=== PATIENT | female | born 1995 | race Caucasian/White ===

== ENCOUNTER 2021-06-01 10:36 | Emergency (ER) | payer OTHER ==
[2021-06-01 11:27] LABS: #Basophils 0.1 10x3/uL (0.0-0.2); #Eosinphils 0.2 10x3/uL (0.0-0.5); #Monocytes 0.8 10x3/uL (0.0-1.1); #Neutrophils 7.8 10x3/uL (1.5-8.4); %Basophils 0.5 % (0.0-2.0); %Eosinophils 1.7 % (0.0-6.0); %Lymphocytes 24.4 % (18.0-47.0); %Monocytes 6.5 % (0.0-10.0); %Neutrophils 66.6 % (40.0-75.0); Hemoglobin 13.9 g/dL (12.0-15.5); Mean Corpuscular HGB CONC 33.6 g/dL (32.0-36.0); Mean Corpuscular Hemoglobin 29.3 pg (27.0-33.0); Mean Corpuscular Volume 87.2 fl (81.6-98.3); Mean Platelet Volume 8.8 fl (7.4-10.4); Platelet Count 336 10x3/uL (150-450); RBC Distribution Width 12.9 % (11.5-14.5); Red Blood Cell (RBC) Count 4.75 10x6/uL (3.90-5.03); White Blood Cell (WBC) Count 11.7 10x3/uL (3.5-10.5)
[2021-06-01 11:44] LABS: Bilirubin Neg (Negative); Blood, Urine 250 (Negative); Clarity Slightly Cloudy (Clear); Glucose, Urine (Dipstick) Normal (Negative); Ketone, Urine Negative (Negative); Leukocyte 500 (Negative); Nitrite Negative (Negative); Protein, Urine (Dipstick) 15 mg/dl (Neg-Trace); Urobilinogen Normal mg/dL (Less than 2)
[2021-06-01 11:55] LABS: Bacteria/HPF 2+ HPF (None Seen); Mucous/LPF 2+ LPF (<2+)
== END 2021-06-01 13:41 | disposition home or self-care (01) ==
LOC: CSHERS 10:36
DX: O20.0 Threatened abortion (principal); R82.71 Bacteriuria; Z3A.01 Less than 8 weeks gestation of pregnancy
CPT/HCPCS: 36415; 76856; 81003; 81015; 84702; 85025; 86900; 86901; 87086

== ENCOUNTER 2021-06-11 11:07 | Emergency (ER) | payer OTHER ==
[2021-06-11 12:18] LABS: #Basophils 0.1 10x3/uL (0.0-0.2); #Eosinphils 0.1 10x3/uL (0.0-0.5); #Monocytes 0.9 10x3/uL (0.0-1.1); #Neutrophils 6.6 10x3/uL (1.5-8.4); %Basophils 0.5 % (0.0-2.0); %Eosinophils 0.5 % (0.0-6.0); %Lymphocytes 21.1 % (18.0-47.0); %Monocytes 9.5 % (0.0-10.0); %Neutrophils 68.1 % (40.0-75.0); Hemoglobin 13.1 g/dL (12.0-15.5); Mean Corpuscular HGB CONC 32.9 g/dL (32.0-36.0); Mean Corpuscular Hemoglobin 29.3 pg (27.0-33.0); Mean Platelet Volume 8.7 fl (7.4-10.4); Platelet Count 289 10x3/uL (150-450); RBC Distribution Width 13.2 % (11.5-14.5); Red Blood Cell (RBC) Count 4.47 10x6/uL (3.90-5.03); White Blood Cell (WBC) Count 9.8 10x3/uL (3.5-10.5)
[2021-06-15 19:57] LABS: Chlamydia by PCR Inconclusive (NotDetected); GC by PCR Inconclusive (NotDetected)
== END 2021-06-11 15:51 | disposition home or self-care (01) ==
LOC: CSHERS 11:07
DX: O03.4 Incomplete spontaneous abortion without complication (principal)
CPT/HCPCS: 84702; 85025; 87480; 87491; 87510; 87591; 87660

== ENCOUNTER 2021-11-30 19:59 | Day surgery (SDC) | payer OTHER ==
[2021-11-30 20:31] VITALS: BMI 40.6
[2021-11-30] MEDS ORDERED: hydrALAZINE 20 MG/ML VIAL SLOW IVP PRN (21:07)
[2021-11-30 23:02] LABS: Bilirubin Neg (Negative); Blood, Urine Negative (Negative); Clarity Slightly Cloudy (Clear); Glucose, Urine (Dipstick) Normal (Negative); Ketone, Urine Negative (Negative); Leukocyte 100 (Negative); Nitrite Negative (Negative); Protein, Urine (Dipstick) 15 mg/dl (Neg-Trace); Specific Gravity, Urine 1.025 (1.002-1.036); Urobilinogen Normal mg/dL (Less than 2)
[2021-11-30 23:10] LABS: RBC/HPF 0-3 HPF (0-3); Squamous Epithelial 0-3 HPF (0-3)
[2021-11-30 23:11] LABS: Bacteria/HPF 1+ HPF (None Seen); Mucous/LPF 1+ LPF (<2+)
[2021-11-30] MEDS ORDERED: Cephalexin 500 MG CAP PO SCH (23:59)
== END 2021-12-01 00:01 | disposition home or self-care (01) ==
LOC: CSHLD/OP 19:59
PROVIDERS: ATTEND Obstetrics & Gynecology
DX: O47.03 False labor before 37 completed weeks of gestation, third trimester (principal); Z3A.30 30 weeks gestation of pregnancy; Z79.899 Other long term (current) drug therapy
CPT/HCPCS: 76815; 81003; 81015; 87086; 99283

== ENCOUNTER 2021-12-28 18:54 | Emergency (ER) | payer OTHER ==
[2021-12-28 19:28] LABS: #Eosinphils 0.1 10x3/uL (0.0-0.5); #Monocytes 1.2 10x3/uL (0.0-1.1); #Neutrophils 7.9 10x3/uL (1.5-8.4); %Basophils 0.3 % (0.0-2.0); %Eosinophils 0.8 % (0.0-6.0); %Lymphocytes 28.3 % (18.0-47.0); %Monocytes 9.3 % (0.0-10.0); %Neutrophils 60.7 % (40.0-75.0); Hemoglobin 11.8 g/dL (12.0-15.5); Mean Corpuscular HGB CONC 33.8 g/dL (32.0-36.0); Mean Corpuscular Hemoglobin 28.5 pg (27.0-33.0); Mean Corpuscular Volume 84.3 fl (81.6-98.3); Mean Platelet Volume 9.1 fl (7.4-10.4); Platelet Count 261 10x3/uL (150-450); RBC Distribution Width 12.9 % (11.5-14.5); Red Blood Cell (RBC) Count 4.14 10x6/uL (3.90-5.03); White Blood Cell (WBC) Count 13.1 10x3/uL (3.5-10.5)
[2021-12-28 19:45] LABS: ALT (SGPT) 11 U/L (8-55); AST (SGOT) 12 U/L (5-34); Albumin 3.3 g/dL (3.5-5.0); Alkaline Phosphatase 107 U/L (40-110); Anion Gap 14 mmol/L (10-20); BUN (Urea Nitrogen) 6 mg/dL (7.0-18.7); Bilirubin, Total 0.3 mg/dL (0.2-1.2); Calc. Creatinine Clearance 0 mL/min (70-130); Calcium 8.8 mg/dL (7.8-10.44); Carbon Dioxide 22 mmol/L (22-29); Chloride 106 mmol/L (98-107); Globulin 2.8 g/dL (2.4-3.5); Glucose 95 mg/dL (70-105); Potassium 3.7 mmol/L (3.5-5.1); Protein, Total 6.1 g/dL (6.0-8.3); Sodium 138 mmol/L (136-145)
== END 2021-12-28 21:22 | disposition home or self-care (01) ==
LOC: CSHERS 18:54
DX: O99.891 Other specified diseases and conditions complicating pregnancy (principal); R07.9 Chest pain, unspecified; O47.03 False labor before 37 completed weeks of gestation, third trimester; Z3A.34 34 weeks gestation of pregnancy
CPT/HCPCS: 80053; 84484; 85025; 93005

== ENCOUNTER 2021-12-28 22:18 | Inpatient (IN) | payer OTHER ==
[2021-12-28 22:32] VITALS: BMI 41.1
[2021-12-28 23:17] LABS: Fetal Membranes Rupture No Membranes Rupture (No Rupture)
[2021-12-28] MEDS ORDERED: Lactated Ringer's 1,000 ML IV SCH ×2 (23:45)
[2021-12-28] MEDS ORDERED: Penicillin G Potassium 5 MILL.UNITS in Sodium Chloride 0.9% 100 ML IVPB SCH (23:45)
[2021-12-28] MEDS ORDERED: NIFEdipine 10 MG CAP PO SCH (23:45)
[2021-12-28] MEDS ORDERED: Promethazine HCl 25 MG/ML VIAL IM PRN (23:49)
[2021-12-28] MEDS ORDERED: Acetaminophen 500 MG TAB PO PRN (23:49)
[2021-12-28] MEDS ORDERED: hydrALAZINE 20 MG/ML VIAL SLOW IVP PRN (23:49)
[2021-12-28] MEDS ORDERED: Ondansetron PF 4 MG/2 ML Vial IVP PRN (23:49)
[2021-12-29] MEDS ORDERED: Betamet Acet/Betamet Na Ph 30 MG/5 ML VIAL ONE
[2021-12-29] MEDS ORDERED: Pen G 2.5 MILL.UNITS/50 ML BAG IVPB SCH (01:00)
[2021-12-29] MEDS: Betamet Acet/Betamet Na Ph 30 MG/5 ML VIAL IM SCH (01:08)
[2021-12-29 01:39] LABS: Hemoglobin 12.9 g/dL (12.0-15.5); Mean Corpuscular HGB CONC 34.6 g/dL (32.0-36.0); Mean Corpuscular Hemoglobin 28.5 pg (27.0-33.0); Mean Corpuscular Volume 82.3 fl (81.6-98.3); Platelet Count 286 10x3/uL (150-450); RBC Distribution Width 12.9 % (11.5-14.5); Red Blood Cell (RBC) Count 4.53 10x6/uL (3.90-5.03); White Blood Cell (WBC) Count 15.6 10x3/uL (3.5-10.5)
[2021-12-29 02:00] LABS: Bilirubin Neg (Negative); Blood, Urine 50 (Negative); Clarity Cloudy (Clear); Glucose, Urine (Dipstick) Normal (Negative); Ketone, Urine Negative (Negative); Leukocyte 100 (Negative); Nitrite Negative (Negative); Protein, Urine (Dipstick) Negative (Neg-Trace); Specific Gravity, Urine 1.025 (1.002-1.036); Urobilinogen Normal mg/dL (Less than 2)
[2021-12-29 02:09] LABS: Bacteria/HPF 2+ HPF (None Seen); Mucous/LPF None Seen LPF (<2+); RBC/HPF 0-3 HPF (0-3); Squamous Epithelial 0-3 HPF (0-3); WBC/HPF 0-3 HPF (0-3)
[2021-12-29 02:10] LABS: Hep B Surf Ag Non-Reactive S/CO (NonReactive)
[2021-12-29 02:11] LABS: Syphilis Antibody Nonreactive (Nonreactive); Syphilis Antibody Index 0.03 S/CO (<1.00 Non-Reactive)
[2021-12-29 02:18] LABS: HBSAg Index 0.15 S/CO (0-0.99)
[2021-12-29 02:32] LABS: SARS-CoV-2 NAA Rapid Test Not Detected (NotDetected)
[2021-12-29] MEDS ORDERED: Penicillin G 2.5 MILL.units 50 ML IVPB SCH (05:00)
[2021-12-29] MEDS: NIFEdipine 10 MG CAP PO SCH ×3 (06:16→21:18)
[2021-12-30] MEDS: NIFEdipine 10 MG CAP PO SCH ×2 (01:33→06:56)
[2021-12-30] MEDS: Betamet Acet/Betamet Na Ph 30 MG/5 ML VIAL IM SCH (01:34)
[2021-12-30] MEDS ORDERED: Cephalexin 500 MG CAP PO SCH (08:00)
== END 2021-12-30 12:45 | disposition home or self-care (01) | DRG 832 ==
LOC: CSHLD/OP 22:18 → CSHLD 23:52
PROVIDERS: ADMIT Student in an Organized Health Care Education/Training Program; ATTEND Student in an Organized Health Care Education/Training Program
DX: O60.03 Preterm labor without delivery, third trimester (principal); O23.43 Unspecified infection of urinary tract in pregnancy, third trimester; N39.0 Urinary tract infection, site not specified; Z3A.34 34 weeks gestation of pregnancy; Z20.822 Contact with and (suspected) exposure to COVID-19; Z79.899 Other long term (current) drug therapy; F41.9 Anxiety disorder, unspecified; O99.343 Other mental disorders complicating pregnancy, third trimester; Z90.89 Acquired absence of other organs; O99.891 Other specified diseases and conditions complicating pregnancy; R07.9 Chest pain, unspecified
CPT/HCPCS: 36415; 76815; 80053; 81001; 84112; 84484; 85025; 86780; 86850; 86900; 86901; 87081; 87340; 87480; 87510; 87660; 93005; J2540; J3490; U0002

== ENCOUNTER 2022-01-01 11:39 | Day surgery (SDC) | payer OTHER ==
[2022-01-01 12:22] VITALS: BMI 41.1
[2022-01-01] MEDS ORDERED: hydrALAZINE 20 MG/ML VIAL SLOW IVP PRN (12:44)
[2022-01-01 14:25] LABS: Bilirubin Neg (Negative); Blood, Urine Negative (Negative); Clarity Clear (Clear); Glucose, Urine (Dipstick) Normal (Negative); Ketone, Urine Negative (Negative); Leukocyte Negative (Negative); Nitrite Negative (Negative); Protein, Urine (Dipstick) Negative (Neg-Trace); Urobilinogen Normal mg/dL (Less than 2)
[2022-01-01 14:26] LABS: Urine Culture Reflex No No
[2022-01-01 14:41] LABS: Bacteria/HPF Rare-Few HPF (None Seen); RBC/HPF None Seen HPF (0-3); Squamous Epithelial 0-3 HPF (0-3); WBC/HPF 0-3 HPF (0-3)
== END 2022-01-01 15:18 | disposition home or self-care (01) ==
LOC: CSHLD/OP 11:39
PROVIDERS: ATTEND Obstetrics & Gynecology
DX: O47.1 False labor at or after 37 completed weeks of gestation (principal); O09.213 Supervision of pregnancy with history of pre-term labor, third trimester; Z3A.35 35 weeks gestation of pregnancy; Z79.899 Other long term (current) drug therapy
CPT/HCPCS: 81001; 99283

== ENCOUNTER 2022-01-02 09:50 | Day surgery (SDC) | payer OTHER ==
[2022-01-02 10:16] VITALS: BMI 41.1
[2022-01-02 11:12] LABS: Fetal Membranes Rupture No Membranes Rupture (No Rupture)
== END 2022-01-02 11:45 | disposition home or self-care (01) ==
LOC: CSHLD/OP 09:50
PROVIDERS: ATTEND Obstetrics & Gynecology
DX: O47.03 False labor before 37 completed weeks of gestation, third trimester (principal); Z3A.35 35 weeks gestation of pregnancy; Z79.899 Other long term (current) drug therapy
CPT/HCPCS: 84112; 99283

== ENCOUNTER 2022-01-06 20:39 | Day surgery (SDC) | payer OTHER ==
[2022-01-06 21:36] VITALS: BMI 41.1
[2022-01-06] MEDS ORDERED: hydrALAZINE 20 MG/ML VIAL SLOW IVP PRN (21:54)
[2022-01-06 22:22] LABS: Fetal Membranes Rupture No Membranes Rupture (No Rupture)
== END 2022-01-07 00:20 | disposition home or self-care (01) ==
LOC: CSHLD/OP 20:39
PROVIDERS: ATTEND Obstetrics & Gynecology
DX: O47.03 False labor before 37 completed weeks of gestation, third trimester (principal); O36.8130 Decreased fetal movements, third trimester, not applicable or unspecified; O99.891 Other specified diseases and conditions complicating pregnancy; N89.8 Other specified noninflammatory disorders of vagina; Z3A.35 35 weeks gestation of pregnancy; Z79.899 Other long term (current) drug therapy
CPT/HCPCS: 84112

== ENCOUNTER 2022-01-11 18:23 | Day surgery (SDC) | payer OTHER ==
[2022-01-11] MEDS ORDERED: hydrALAZINE 20 MG/ML VIAL SLOW IVP PRN (19:14)
[2022-01-11] MEDS ORDERED: Lactated Ringer's 1,000 ML IV SCH ×2 (19:15)
[2022-01-11 19:49] LABS: #Monocytes 1.2 10x3/uL (0.0-1.1); #Neutrophils 9.4 10x3/uL (1.5-8.4); %Basophils 0.3 % (0.0-2.0); %Eosinophils 0.1 % (0.0-6.0); %Lymphocytes 6.6 % (18.0-47.0); %Monocytes 10.3 % (0.0-10.0); %Neutrophils 81.5 % (40.0-75.0); Hemoglobin 12.3 g/dL (12.0-15.5); Mean Corpuscular HGB CONC 34.5 g/dL (32.0-36.0); Mean Corpuscular Hemoglobin 28.1 pg (27.0-33.0); Mean Corpuscular Volume 81.5 fl (81.6-98.3); Platelet Count 227 10x3/uL (150-450); RBC Distribution Width 13.2 % (11.5-14.5); Red Blood Cell (RBC) Count 4.38 10x6/uL (3.90-5.03); White Blood Cell (WBC) Count 11.5 10x3/uL (3.5-10.5)
[2022-01-11] MEDS ORDERED: Acetaminophen 500 MG TAB PO SCH (20:00)
[2022-01-11 20:34] LABS: SARS-CoV-2 NAA Rapid Test DETECTED (NotDetected)
[2022-01-11 20:37] VITALS: BMI 42.2
== END 2022-01-12 01:26 | disposition home or self-care (01) ==
LOC: CSHLD/OP 18:23
PROVIDERS: ATTEND Obstetrics & Gynecology
DX: O98.513 Other viral diseases complicating pregnancy, third trimester (principal); U07.1 COVID-19; O09.213 Supervision of pregnancy with history of pre-term labor, third trimester; Z91.51 Personal history of suicidal behavior; Z3A.36 36 weeks gestation of pregnancy; Z79.899 Other long term (current) drug therapy
CPT/HCPCS: 76819; 85025; 96360; 96361; 99283

== ENCOUNTER 2022-01-17 21:21 | Inpatient (IN) | payer OTHER ==
[2022-01-17 21:54] VITALS: BMI 42.2
[2022-01-17 22:26] LABS: Fetal Membranes Rupture No Membranes Rupture (No Rupture)
[2022-01-18] MEDS ORDERED: Bupivacaine 0.25% HCL 30 ML VIAL ONE (08:00)
[2022-01-18] MEDS ORDERED: HYDROcodone/Acetaminophen 5/325 mg Tablet PO PRN ×2 (09:41)
[2022-01-18] MEDS ORDERED: hydrALAZINE 20 MG/ML VIAL SLOW IVP PRN (09:41)
[2022-01-18] MEDS ORDERED: Ibuprofen 800 MG TAB PO PRN (09:41)
[2022-01-18] MEDS ORDERED: Promethazine HCl 25 MG/ML VIAL IM PRN ×2 (09:41→17:08)
[2022-01-18] MEDS ORDERED: Butorphanol Tartrate 1 MG/ML VIAL SLOW IVP PRN (09:41)
[2022-01-18] MEDS ORDERED: Lidocaine 1% (PF) 30 ML VIAL SC PRN (09:41)
[2022-01-18] MEDS ORDERED: Ondansetron PF 4 MG/2 ML Vial IVP PRN ×2 (09:41→17:08)
[2022-01-18] MEDS ORDERED: Methylergonovine 0.2 MG/ML VIAL IM PRN (09:41)
[2022-01-18] MEDS ORDERED: Misoprostol 200 MCG TAB PR PRN (09:41)
[2022-01-18 09:56] LABS: Hemoglobin 11.6 g/dL (12.0-15.5); Mean Corpuscular HGB CONC 34.1 g/dL (32.0-36.0); Mean Corpuscular Hemoglobin 27.3 pg (27.0-33.0); Mean Platelet Volume 9.6 fl (7.4-10.4); Platelet Count 227 10x3/uL (150-450); RBC Distribution Width 13.4 % (11.5-14.5); Red Blood Cell (RBC) Count 4.25 10x6/uL (3.90-5.03); White Blood Cell (WBC) Count 10.9 10x3/uL (3.5-10.5)
[2022-01-18] MEDS: NS w/ Oxytocin 30 units 500 ML IV SCH ×2 (09:57→21:55)
[2022-01-18] MEDS: Lactated Ringer's 1,000 ML IV SCH (09:58)
[2022-01-18 10:26] LABS: Hep B Surf Ag Non-Reactive S/CO (NonReactive); Syphilis Antibody Nonreactive (Nonreactive); Syphilis Antibody Index 0.03 S/CO (<1.00 Non-Reactive)
[2022-01-18 10:44] LABS: HBSAg Index 0.17 S/CO (0-0.99)
[2022-01-18] MEDS ORDERED: Fentanyl 2 mcg/Bup 0.1% Cadd 100 ML ONE (11:59)
[2022-01-18] MEDS ORDERED: Lactated Ringer's 500 ML IV PRN (17:08)
[2022-01-18] MEDS ORDERED: diphenhydrAMINE 50 MG/ML VIAL IVP PRN (17:08)
[2022-01-18] MEDS ORDERED: ePHEDrine Sulfate 50 MG/10 ML VIAL SLOW IVP PRN (17:08)
[2022-01-18] MEDS ORDERED: Moisturizing Cream (Eucerin) 113 GM JAR TOP PRN (17:08)
[2022-01-18] MEDS ORDERED: Naloxone HCl 0.4 mg/ml Vial IVP PRN ×2 (17:08)
[2022-01-18] MEDS ORDERED: Acetaminophen 325 MG TAB PO PRN (17:08)
[2022-01-18] MEDS ORDERED: Fentanyl 2 mcg/Bupivacaine 0.1% Cassette 100 ML EPIDURAL SCH (17:15)
[2022-01-18] MEDS ORDERED: Communication Order-Pharmacy FS SCH (17:15)
[2022-01-18] MEDS ORDERED: Calcium Carbonate 500 MG ChewTAB PO SCH (20:15)
[2022-01-19] MEDS: NS w/ Oxytocin 30 units 500 ML IV SCH (00:40)
[2022-01-19] MEDS ORDERED: Bisacodyl 10 MG SUPP PR PRN (02:50)
[2022-01-19] MEDS ORDERED: Ondansetron PF 4 MG/2 ML Vial IVP PRN (02:50)
[2022-01-19] MEDS ORDERED: hydrALAZINE 20 MG/ML VIAL SLOW IVP PRN (02:50)
[2022-01-19] MEDS ORDERED: Boostrix 0.5 ML (Tdap) VIAL IM ONE (02:50)
[2022-01-19] MEDS ORDERED: Benzocaine-Menthol 82.5 ML CAN TOP PRN (02:50)
[2022-01-19] MEDS ORDERED: Milk Of Magnesia 30 ML UDCUP PO PRN (02:50)
[2022-01-19] MEDS ORDERED: Lanolin Ointment 7 GM TUBE TOP PRN (02:50)
[2022-01-19] MEDS ORDERED: HYDROcodone/Acetaminophen 5/325 mg Tablet PO PRN ×2 (02:50)
[2022-01-19] MEDS ORDERED: Misoprostol 200 MCG TAB VAG PRN (02:50)
[2022-01-19] MEDS ORDERED: Methylergonovine 0.2 MG/ML VIAL IM PRN (02:50)
[2022-01-19] MEDS ORDERED: NS w/ Oxytocin 30 units 500 ML IV SCH (03:00)
[2022-01-19] MEDS: Lactated Ringer's 1,000 ML IV SCH (03:32)
[2022-01-19] MEDS: Ibuprofen 800 MG TAB PO SCH ×3 (05:22→21:28)
[2022-01-19] MEDS: Docusate 100 MG CAP PO SCH ×2 (09:28→21:28)
[2022-01-19] MEDS: Ferrous Sulfate 325 MG TAB PO SCH ×2 (09:28→16:26)
[2022-01-19] MEDS: Prenatal Vitamin 1 TAB PO SCH (09:28)
[2022-01-20] MEDS: Ibuprofen 800 MG TAB PO SCH (06:20)
[2022-01-20] MEDS: Docusate 100 MG CAP PO SCH (08:36)
[2022-01-20] MEDS: Ferrous Sulfate 325 MG TAB PO SCH (08:36)
[2022-01-20] MEDS: Prenatal Vitamin 1 TAB PO SCH (08:37)
[2022-01-20 12:33] VITALS: BP 106/58; TEMP 98.3
== END 2022-01-20 14:30 | disposition home or self-care (01) | DRG 807 ==
LOC: CSHLD/OP 21:21 → CSHLD 01-18 10:14 → CSHPP 01-19 02:35
PROVIDERS: ADMIT Obstetrics & Gynecology; ATTEND Obstetrics & Gynecology
PROC: 10E0XZZ Delivery of Products of Conception, External Approach (ICD-10-PCS; principal; 2022-01-19)
DX: O99.344 Other mental disorders complicating childbirth (principal); Z37.0 Single live birth; F41.9 Anxiety disorder, unspecified; F32.A Depression, unspecified; Z79.899 Other long term (current) drug therapy; Z90.89 Acquired absence of other organs; Z3A.37 37 weeks gestation of pregnancy; O69.81X0 Labor and delivery complicated by cord around neck, without compression, not applicable or unspecified
CPT/HCPCS: 51702; 84112; 85027; 86780; 86850; 86900; 86901; 87340; 99285; J2590; S0020

== ENCOUNTER 2023-03-13 13:57 | Day surgery (SDC) | payer OTHER ==
[2023-03-13] MEDS ORDERED: hydrALAZINE 20 MG/ML VIAL SLOW IVP PRN (15:49)
[2023-03-13 16:02] LABS: Bilirubin Neg (Negative); Blood, Urine 10 (Negative); Clarity Clear (Clear); Glucose, Urine (Dipstick) Normal (Negative); Ketone, Urine Negative (Negative); Leukocyte 25 (Negative); Nitrite Negative (Negative); Protein, Urine (Dipstick) Negative (Neg-Trace); Urobilinogen Normal mg/dL (Less than 2)
[2023-03-13 16:18] LABS: Bacteria/HPF 1+ HPF (None Seen); RBC/HPF 0-3 HPF (0-3); Squamous Epithelial 0-3 HPF (0-3)
[2023-03-13] MEDS ORDERED: Cephalexin 500 MG CAP PO SCH (18:30)
== END 2023-03-13 20:55 | disposition home or self-care (01) ==
LOC: CSHLD/OP 13:57
PROVIDERS: ATTEND Obstetrics & Gynecology
DX: O23.42 Unspecified infection of urinary tract in pregnancy, second trimester (principal); N39.0 Urinary tract infection, site not specified; O99.342 Other mental disorders complicating pregnancy, second trimester; F41.9 Anxiety disorder, unspecified; Z3A.22 22 weeks gestation of pregnancy; Z79.899 Other long term (current) drug therapy
CPT/HCPCS: 76815; 81003; 81015; 87086; 99283

== ENCOUNTER 2023-05-14 21:17 | Day surgery (SDC) | payer OTHER ==
[2023-05-14 22:03] VITALS: BMI 44.1
[2023-05-14] MEDS ORDERED: hydrALAZINE 20 MG/ML VIAL SLOW IVP PRN (22:21)
[2023-05-14 22:36] LABS: Fetal Membranes Rupture No Membranes Rupture (No Rupture)
== END 2023-05-14 23:28 | disposition home or self-care (01) ==
LOC: CSHLD/OP 21:17
PROVIDERS: ATTEND Obstetrics & Gynecology
DX: Z03.71 Encounter for suspected problem with amniotic cavity and membrane ruled out (principal); O47.03 False labor before 37 completed weeks of gestation, third trimester; O99.343 Other mental disorders complicating pregnancy, third trimester; F32.A Depression, unspecified; F41.9 Anxiety disorder, unspecified; O23.43 Unspecified infection of urinary tract in pregnancy, third trimester; N39.0 Urinary tract infection, site not specified; Z98.890 Other specified postprocedural states; Z79.899 Other long term (current) drug therapy; Z3A.31 31 weeks gestation of pregnancy
CPT/HCPCS: 76819; 84112; 99283

== ENCOUNTER 2023-06-04 16:30 | Day surgery (SDC) | payer OTHER ==
[2023-06-04 17:04] VITALS: BMI 44.1
[2023-06-04] MEDS ORDERED: hydrALAZINE 20 MG/ML VIAL SLOW IVP PRN (17:32)
[2023-06-04 20:13] LABS: Fetal Membranes Rupture No Membranes Rupture (No Rupture)
== END 2023-06-04 21:30 | disposition home or self-care (01) ==
LOC: CSHLD/OP 16:30
PROVIDERS: ATTEND Obstetrics & Gynecology
DX: O47.03 False labor before 37 completed weeks of gestation, third trimester (principal); O99.343 Other mental disorders complicating pregnancy, third trimester; F32.A Depression, unspecified; F41.9 Anxiety disorder, unspecified; Z3A.35 35 weeks gestation of pregnancy; Z79.899 Other long term (current) drug therapy
CPT/HCPCS: 76815; 76819; 84112; 87480; 87510; 87660; 99283

== ENCOUNTER 2023-06-14 12:53 | Day surgery (SDC) | payer SELFPAY ==
[2023-06-14 13:07] VITALS: BMI 44.9
[2023-06-14] MEDS ORDERED: hydrALAZINE 20 MG/ML VIAL SLOW IVP PRN (14:20)
== END 2023-06-14 14:34 | disposition home or self-care (01) ==
LOC: CSHLD/OP 12:53
PROVIDERS: ATTEND Obstetrics & Gynecology
DX: O36.8130 Decreased fetal movements, third trimester, not applicable or unspecified (principal); O99.343 Other mental disorders complicating pregnancy, third trimester; F32.A Depression, unspecified; F41.9 Anxiety disorder, unspecified; Z79.899 Other long term (current) drug therapy; Z3A.36 36 weeks gestation of pregnancy
CPT/HCPCS: 99282

== ENCOUNTER 2023-06-16 11:42 | Day surgery (SDC) | payer OTHER, SELFPAY ==
[2023-06-16 12:03] VITALS: BMI 44.6
[2023-06-16] MEDS ORDERED: Fioricet 325/50/40 mg Tablet PO SCH ×2 (12:15→16:00)
[2023-06-16] MEDS ORDERED: hydrALAZINE 20 MG/ML VIAL SLOW IVP PRN (12:15)
[2023-06-16] MEDS ORDERED: Metoclopramide HCl 10 MG TAB PO SCH (12:30)
[2023-06-16] MEDS ORDERED: Metoclopramide HCl 10 MG/2 ML VIAL IVP SCH (14:30)
[2023-06-16] MEDS ORDERED: Lactated Ringer's 1,000 ML IV SCH (14:30)
[2023-06-16 15:01] LABS: #Basophils 0.1 10x3/uL (0.0-0.2); #Eosinphils 0.1 10x3/uL (0.0-0.5); #Monocytes 0.9 10x3/uL (0.0-1.1); #Neutrophils 7.9 10x3/uL (1.5-8.4); %Basophils 0.4 % (0.0-2.0); %Eosinophils 0.7 % (0.0-6.0); %Lymphocytes 26.5 % (18.0-47.0); %Monocytes 7.2 % (0.0-10.0); %Neutrophils 64.8 % (40.0-75.0); Hematocrit 34.1 % (34.9-44.5); Hemoglobin 11.2 g/dL (12.0-15.5); Mean Corpuscular HGB CONC 32.8 g/dL (32.0-36.0); Mean Corpuscular Hemoglobin 25.3 pg (27.0-33.0); Mean Corpuscular Volume 77.1 fl (81.6-98.3); Mean Platelet Volume 10.2 fl (7.4-10.4); Platelet Count 294 10x3/uL (150-450); RBC Distribution Width 14.6 % (11.5-14.5); Red Blood Cell (RBC) Count 4.42 10x6/uL (3.90-5.03); White Blood Cell (WBC) Count 12.2 10x3/uL (3.5-10.5)
[2023-06-16 15:03] LABS: Bilirubin Neg (Negative); Blood, Urine 10 (Negative); Clarity Clear (Clear); Glucose, Urine (Dipstick) Normal (Negative); Ketone, Urine Negative (Negative); Leukocyte 25 (Negative); Nitrite Negative (Negative); Protein, Urine (Dipstick) Negative (Neg-Trace); Specific Gravity, Urine 1.015 (1.005-1.030); Urobilinogen Normal mg/dL (Less than 2)
[2023-06-16 15:16] LABS: ALT (SGPT) Less than 7 U/L (8-55); AST (SGOT) 11 U/L (5-34); Albumin 3.2 g/dL (3.5-5.0); Alkaline Phosphatase 117 U/L (40-110); Anion Gap 13 mmol/L (10-20); BUN (Urea Nitrogen) 4 mg/dL (7.0-18.7); Bacteria/HPF Rare-Few HPF (None Seen); Bilirubin, Total 0.4 mg/dL (0.2-1.2); CAUTI Indications for Culture Pregnancy; Calc. Creatinine Clearance 291 mL/min (70-130); Calcium 9.1 mg/dL (7.8-10.44); Carbon Dioxide 20 mmol/L (22-29); Chloride 107 mmol/L (98-107); Estimated GFR 130; Globulin 3.1 g/dL (2.4-3.5); Glucose 72 mg/dL (70-105); Potassium 4.2 mmol/L (3.5-5.1); Protein, Total 6.3 g/dL (6.0-8.3); RBC/HPF 0-3 HPF (0-3); Sodium 136 mmol/L (136-145); Squamous Epithelial 0-3 HPF (0-3); WBC/HPF 0-3 HPF (0-3)
[2023-06-16 15:17] LABS: Urine Culture Reflex Yes Yes
[2023-06-16] MEDS ORDERED: Ondansetron PF 4 MG/2 ML Vial IVP SCH (15:45)
== END 2023-06-16 17:28 | disposition home or self-care (01) ==
LOC: CSHLD/OP 11:42
PROVIDERS: ATTEND Obstetrics & Gynecology
DX: O99.353 Diseases of the nervous system complicating pregnancy, third trimester (principal); R51.9 Headache, unspecified; Z3A.36 36 weeks gestation of pregnancy
CPT/HCPCS: 80053; 81001; 82570; 84156; 85025; 87086; 96360; 96361; 96375; 99285; J2405; J2765

== ENCOUNTER 2023-06-21 15:30 | Day surgery (SDC) | payer OTHER ==
[2023-06-21 15:47] VITALS: BMI 44.1
[2023-06-21] MEDS ORDERED: hydrALAZINE 20 MG/ML VIAL SLOW IVP PRN (16:52)
[2023-06-21 17:25] LABS: Fetal Membranes Rupture No Membranes Rupture (No Rupture)
== END 2023-06-21 19:27 | disposition home or self-care (01) ==
LOC: CSHLD/OP 15:30
PROVIDERS: ATTEND Obstetrics & Gynecology
DX: O47.1 False labor at or after 37 completed weeks of gestation (principal); Z3A.37 37 weeks gestation of pregnancy
CPT/HCPCS: 84112

== ENCOUNTER 2023-06-24 15:53 | Day surgery (SDC) | payer OTHER | END 2023-06-24 17:45 | disposition home or self-care (01) | LOC: CSHLD/OP 15:53 | PROVIDERS: ATTEND Obstetrics & Gynecology | DX: O47.1 False labor at or after 37 completed weeks of gestation (principal); Z3A.37 37 weeks gestation of pregnancy ==

== ENCOUNTER 2023-06-27 19:11 | Day surgery (SDC) | payer OTHER ==
[2023-06-27 20:17] VITALS: BMI 44.2
[2023-06-27] MEDS ORDERED: hydrALAZINE 20 MG/ML VIAL SLOW IVP PRN (20:37)
[2023-06-27 21:42] LABS: Fetal Membranes Rupture No Membranes Rupture (No Rupture)
[2023-06-28] MEDS ORDERED: Zolpidem Tartrate 5 MG TAB PO PRN
[2023-06-28] MEDS ORDERED: Oxytocin 30 units/NS 500 ML 500 ML IV SCH
== END 2023-06-28 06:57 | disposition home or self-care (01) ==
LOC: CSHLD/OP 19:11
PROVIDERS: ATTEND Obstetrics & Gynecology
DX: O47.1 False labor at or after 37 completed weeks of gestation (principal); Z79.899 Other long term (current) drug therapy; Z3A.38 38 weeks gestation of pregnancy
CPT/HCPCS: 84112; 99284

== ENCOUNTER 2023-06-29 13:07 | Inpatient (IN) | payer OTHER ==
[2023-06-29] MEDS ORDERED: Penicillin G Potassium 5 MILL.UNITS VIAL ONE (16:07)
[2023-06-29] MEDS ORDERED: hydrALAZINE 20 MG/ML VIAL SLOW IVP PRN (16:44)
[2023-06-29] MEDS ORDERED: Promethazine HCl 25 MG/ML VIAL IM PRN (16:44)
[2023-06-29] MEDS ORDERED: Acetaminophen 500 MG TAB PO PRN (16:44)
[2023-06-29] MEDS ORDERED: Lidocaine 1% (PF) 30 ML VIAL SC PRN (16:44)
[2023-06-29] MEDS ORDERED: Ondansetron PF 4 MG/2 ML Vial IVP PRN (16:44)
[2023-06-29] MEDS ORDERED: Penicillin G Potassium 5 MILL.UNITS in Sodium Chloride 0.9% 100 ML IVPB SCH (16:45)
[2023-06-29] MEDS ORDERED: Oxytocin 30 units/NS 500 ML 500 ML IV SCH ×3 (16:45→22:30)
[2023-06-29 16:59] LABS: Hematocrit 35.7 % (34.9-44.5); Hemoglobin 11.7 g/dL (12.0-15.5); Mean Corpuscular HGB CONC 32.8 g/dL (32.0-36.0); Mean Corpuscular Hemoglobin 25.1 pg (27.0-33.0); Mean Corpuscular Volume 76.4 fl (81.6-98.3); Mean Platelet Volume 10.6 fl (7.4-10.4); Platelet Count 303 10x3/uL (150-450); RBC Distribution Width 15.4 % (11.5-14.5); Red Blood Cell (RBC) Count 4.67 10x6/uL (3.90-5.03); White Blood Cell (WBC) Count 10.9 10x3/uL (3.5-10.5)
[2023-06-29 17:15] VITALS: BMI 41.9
[2023-06-29] MEDS ORDERED: Bupivacaine 0.25% HCL 30 ML VIAL ONE (17:51)
[2023-06-29 19:03] LABS: Syphilis Antibody Nonreactive (Nonreactive); Syphilis Antibody Index 0.04 S/CO (<1.00 Non-Reactive)
[2023-06-29 19:04] LABS: HBSAg Index 0.18 S/CO (0-0.99); Hep B Surf Ag - L&D Non-Reactive S/CO (NonReactive)
[2023-06-29] MEDS: Penicillin G 2.5 MILL.units 2.5 MILL.UNITS in Premix 1 BAG IVPB SCH (20:41)
[2023-06-29] MEDS ORDERED: Lactated Ringer's 1,000 ML IV SCH (22:30)
[2023-06-30] MEDS ORDERED: fentaNYL/Ropivacaine Epidural 100 ML ONE (00:37)
[2023-06-30] MEDS: Penicillin G 2.5 MILL.units 2.5 MILL.UNITS in Premix 1 BAG IVPB SCH (00:44)
[2023-06-30] MEDS ORDERED: Moisturizing Cream (Eucerin) 113 GM JAR TOP PRN (01:22)
[2023-06-30] MEDS ORDERED: Acetaminophen 325 MG TAB PO PRN (01:22)
[2023-06-30] MEDS ORDERED: Naloxone HCl 0.4 mg/ml Vial IVP PRN ×2 (01:22)
[2023-06-30] MEDS ORDERED: Promethazine HCl 25 MG/ML VIAL IM PRN (01:22)
[2023-06-30] MEDS ORDERED: Ondansetron PF 4 MG/2 ML Vial IVP PRN (01:22)
[2023-06-30] MEDS ORDERED: Lactated Ringer's 500 ML IV PRN (01:22)
[2023-06-30] MEDS ORDERED: diphenhydrAMINE 50 MG/ML VIAL IVP PRN (01:22)
[2023-06-30] MEDS ORDERED: ePHEDrine Sulfate 50 MG/10 ML VIAL SLOW IVP PRN (01:22)
[2023-06-30] MEDS ORDERED: fentaNYL 2 mcg/Ropivacaine 0.2% Epidural 100 ML CADD EPIDURAL SCH (01:30)
[2023-06-30] MEDS ORDERED: Communication Order-Pharmacy FS SCH (01:30)
[2023-06-30] MEDS ORDERED: fentaNYL 50 mcg/mL 1 mL Vial ONE (02:31)
[2023-06-30] MEDS ORDERED: Boostrix 0.5 ML (Tdap) VIAL (>/=7 yrs of age) IM ONE (05:35)
[2023-06-30] MEDS ORDERED: Milk Of Magnesia 30 ML UDCUP PO PRN (05:35)
[2023-06-30] MEDS ORDERED: Preparation H Ointment 28 GM TUBE PR PRN (05:35)
[2023-06-30] MEDS ORDERED: Lanolin Ointment 7 GM TUBE TOP PRN (05:35)
[2023-06-30] MEDS ORDERED: hydrALAZINE 20 MG/ML VIAL SLOW IVP PRN (05:35)
[2023-06-30] MEDS ORDERED: Bisacodyl 10 MG SUPP PR PRN (05:35)
[2023-06-30] MEDS: Ibuprofen 800 MG TAB PO SCH ×3 (06:02→22:05)
[2023-06-30] MEDS: Prenatal Vitamin 1 TAB PO SCH (08:19)
[2023-06-30] MEDS: Docusate 100 MG CAP PO SCH ×2 (08:19→22:05)
[2023-06-30] MEDS: Sertraline 25 MG TAB PO SCH (09:37)
[2023-06-30] MEDS: Ferrous Sulfate 325 MG TAB PO SCH ×2 (09:42→17:51)
[2023-07-01] MEDS: Ibuprofen 800 MG TAB PO SCH (05:49)
[2023-07-01] MEDS: Ferrous Sulfate 325 MG TAB PO SCH (07:52)
[2023-07-01] MEDS: Sertraline 25 MG TAB PO SCH (07:56)
[2023-07-01] MEDS: Prenatal Vitamin 1 TAB PO SCH (07:56)
[2023-07-01] MEDS: Docusate 100 MG CAP PO SCH (07:56)
[2023-07-01] MEDS: Penicillin G 2.5 MILL.units 2.5 MILL.UNITS in Premix 1 BAG IVPB SCH (08:42)
[2023-07-01 08:44] VITALS: BP 143/92; TEMP 98.1
== END 2023-07-01 10:45 | disposition home or self-care (01) | DRG 807 ==
LOC: CSHLD/OP 13:07 → CSHLD 19:29 → CSHPP 06-30 09:05
PROVIDERS: ADMIT Obstetrics & Gynecology; ATTEND Obstetrics & Gynecology
PROC: 10907ZC Drainage of Amniotic Fluid, Therapeutic from Products of Conception, Via Natural or Artificial Opening (ICD-10-PCS; 2023-06-29)
PROC: 10E0XZZ Delivery of Products of Conception, External Approach (ICD-10-PCS; principal; 2023-06-30)
PROC: 10H07YZ Insertion of Other Device into Products of Conception, Via Natural or Artificial Opening (ICD-10-PCS; 2023-06-30)
DX: O80 Encounter for full-term uncomplicated delivery (principal); Z37.0 Single live birth; Z3A.38 38 weeks gestation of pregnancy
CPT/HCPCS: 36415; 85027; 86780; 86850; 86900; 86901; 87340; J2540; J2590; S0020

== ENCOUNTER 2024-02-11 15:01 | Emergency (ER) | payer OTHER ==
[2024-02-11] MEDS ORDERED: Ketorolac Tromethamine 30 MG (1 mL) VIAL ONE (16:29)
== END 2024-02-11 17:00 | disposition home or self-care (01) ==
LOC: CSHERS 15:01
DX: S43.51XA Sprain of right acromioclavicular joint, initial encounter (principal); V86.95XA Unspecified occupant of 3- or 4- wheeled all-terrain vehicle (ATV) injured in nontraffic accident, initial encounter
CPT/HCPCS: 96372; J1885

== ENCOUNTER → 2024-07-31 | Emergency (ER) | payer OTHER ==
[2024-07-31 14:09] LABS: #Basophils 0.04 10x3/uL (0.0-0.2); #Eosinophils 0.03 10x3/uL (0.0-0.5); #Monocytes 0.79 10x3/uL (0.0-1.1); #Neutrophils 4.59 10x3/uL (1.5-8.4); %Basophils 0.6 % (0.0-2.0); %Eosinophils 0.4 % (0.0-6.0); %Lymphocytes 20.3 % (18.0-47.0); %Monocytes 11.5 % (0.0-10.0); %Neutrophils 66.9 % (40.0-75.0); Hematocrit 41.2 % (34.9-44.5); Hemoglobin 13.4 g/dL (12.0-15.5); Mean Corpuscular HGB CONC 32.5 g/dL (32.0-36.0); Mean Corpuscular Hemoglobin 27.5 pg (27.0-33.0); Mean Corpuscular Volume 84.6 fL (81.6-98.3); Mean Platelet Volume 8.8 fL (7.4-10.4); Platelet Count 264 10x3/uL (150-450); RBC Distribution Width 13.5 % (11.5-14.5); Red Blood Cell (RBC) Count 4.87 10x6/uL (3.90-5.03); White Blood Cell (WBC) Count 6.9 10x3/uL (3.5-10.5)
== END ==
LOC: CSHERS 13:29
DX: O20.9 Hemorrhage in early pregnancy, unspecified (principal); Z3A.00 Weeks of gestation of pregnancy not specified
CPT/HCPCS: 84702; 85025; 99284

== ENCOUNTER 2025-03-12 20:32 | Inpatient (IN) | payer BC, OTHER ==
[2025-03-12] MEDS ORDERED: hydrALAZINE 20 MG/ML VIAL SLOW IVP PRN ×2 (21:17→23:45)
[2025-03-12 22:39] VITALS: BMI 41.1
[2025-03-12] MEDS ORDERED: Tranexamic Acid 1,000 MG/10 ML VIAL IVP PRN (23:45)
[2025-03-12] MEDS ORDERED: Carboprost 250 MCG/ML AMP IM PRN (23:45)
[2025-03-12] MEDS ORDERED: Lidocaine 1% (PF) 30 ML VIAL SC PRN (23:45)
[2025-03-12] MEDS ORDERED: Oxytocin 30 units/NS 500 ML 500 ML IV SCH (23:45)
[2025-03-12] MEDS ORDERED: Diphenoxylate HCl/Atropine Tablet PO PRN ×2 (23:45)
[2025-03-12] MEDS ORDERED: Ondansetron PF 4 MG/2 ML Vial IVP PRN (23:45)
[2025-03-12] MEDS ORDERED: Ibuprofen 800 MG TAB PO PRN (23:45)
[2025-03-12] MEDS ORDERED: Methylergonovine 0.2 MG/ML VIAL IM PRN (23:45)
[2025-03-13 00:49] LABS: Hematocrit 35.2 % (34.9-44.5); Hemoglobin 10.9 g/dL (12.0-15.5); Mean Corpuscular Hemoglobin 22.9 pg (27.0-33.0); Mean Corpuscular Volume 73.9 fL (81.6-98.3); Platelet Count 282 10x3/uL (150-450); Red Blood Cell (RBC) Count 4.76 10x6/uL (3.90-5.03); White Blood Cell (WBC) Count 14.48 10x3/uL (3.5-10.5)
[2025-03-13 01:23] LABS: Hep B Surf Ag - L&D Non-Reactive S/CO (NonReactive)
[2025-03-13 01:24] LABS: Syphilis Antibody Index 0.06 S/CO (<1.00 Non-Reactive)
[2025-03-13] MEDS: fentaNYL/Ropivacaine Epidural 100 ML ONE (02:26)
[2025-03-13] MEDS ORDERED: Ondansetron PF 4 MG/2 ML Vial IVP PRN ×2 (02:32→10:29)
[2025-03-13] MEDS ORDERED: diphenhydrAMINE 50 MG/ML VIAL IVP PRN (02:32)
[2025-03-13] MEDS ORDERED: Acetaminophen 325 MG TAB PO PRN (02:32)
[2025-03-13] MEDS ORDERED: fentaNYL 2 mcg/Ropivacaine 0.2% Epidural 100 ML CADD EPIDURAL SCH (02:45)
[2025-03-13] MEDS ORDERED: Communication Order-Pharmacy FS SCH (02:45)
[2025-03-13] MEDS ORDERED: Methylergonovine 0.2 MG/ML VIAL IM PRN (10:29)
[2025-03-13] MEDS ORDERED: Boostrix 0.5 ML (Tdap) VIAL (>/=7 yrs of age) IM ONE (10:29)
[2025-03-13] MEDS ORDERED: Lanolin Ointment 7 GM TUBE TOP PRN (10:29)
[2025-03-13] MEDS ORDERED: Preparation H Ointment 28 GM TUBE PR PRN (10:29)
[2025-03-13] MEDS ORDERED: Bisacodyl 10 MG SUPP PR PRN (10:29)
[2025-03-13] MEDS ORDERED: diphenhydrAMINE 25 MG CAP PO PRN (10:29)
[2025-03-13] MEDS ORDERED: Benzocaine-Menthol 82.5 ML CAN TOP PRN (10:29)
[2025-03-13] MEDS ORDERED: hydrALAZINE 20 MG/ML VIAL SLOW IVP PRN (10:29)
[2025-03-13] MEDS ORDERED: Milk Of Magnesia 30 ML UDCUP PO PRN (10:29)
[2025-03-13] MEDS ORDERED: Oxytocin 30 units/NS 500 ML 500 ML IV SCH (10:30)
[2025-03-13] MEDS: Oxytocin 30 units/NS 500 ML 500 ML IV SCH (10:55)
[2025-03-13] MEDS: Ferrous Sulfate 325 MG TAB PO SCH (16:20)
[2025-03-13] MEDS: Ibuprofen 800 MG TAB PO SCH (16:39)
[2025-03-14] MEDS: Ibuprofen 800 MG TAB PO SCH (00:19)
[2025-03-14 11:13] VITALS: BP 103/66; TEMP 98.6
== END 2025-03-14 12:05 | disposition home or self-care (01) | DRG 807 ==
LOC: CSHLD/OP 20:32 → CSHLD 23:46 → UNDOADMIN 03-13 00:15 → CSHLD 03-13 00:15 → CSHPED 03-13 13:26
PROVIDERS: ADMIT Family Medicine; ATTEND Family Medicine
PROC: 10907ZC Drainage of Amniotic Fluid, Therapeutic from Products of Conception, Via Natural or Artificial Opening (ICD-10-PCS; principal; 2025-03-13)
PROC: 10E0XZZ Delivery of Products of Conception, External Approach (ICD-10-PCS; 2025-03-13)
DX: O99.344 Other mental disorders complicating childbirth (principal); Z37.0 Single live birth; F32.A Depression, unspecified; Z79.899 Other long term (current) drug therapy; Z3A.37 37 weeks gestation of pregnancy
CPT/HCPCS: 51702; 85027; 86780; 86850; 86900; 86901; 87340; 87480; 87510; 87660; 99285; J2590